=== PATIENT | male | born 1990 ===

== ENCOUNTER → 2016-08-25 | Outpatient (CLI) | payer OTHER ==
[~2016-08-25] MED LIST: AMOXICILLIN 8751 TAB PO; PREDNISONE20 MG PO
== END ==
LOC: ZCOL.LAB 17:40
DX: Z01.812 Encounter for preprocedural laboratory examination (principal); Z86.14 Personal history of Methicillin resistant Staphylococcus aureus infection

== ENCOUNTER 2017-02-06 03:42 | Emergency (ER) | payer OTHER ==
[~2017-02-06] VITALS: Ht 185.4 cm; Wt 97.7 kg
[2017-02-06 03:47] VITALS: TEMP 98
[2017-02-06] MEDS ORDERED: PREDNISONE20 MG PO (03:50)
[2017-02-06] MEDS ORDERED: AMOXICILLIN 8751 TAB PO (05:25)
[2017-02-06 06:08] VITALS: BP 132/73; PULSE 89
== END 2017-02-06 06:10 | disposition home or self-care (01) ==
LOC: COL.ER 03:42
DX: S66.301A Unspecified injury of extensor muscle, fascia and tendon of left index finger at wrist and hand level, initial encounter (principal); Y04.2XXA Assault by strike against or bumped into by another person, initial encounter; Y04.1XXA Assault by human bite, initial encounter; Y92.414 Local residential or business street as the place of occurrence of the external cause

== ENCOUNTER 2017-02-08 09:34 | Inpatient (IN) | payer OTHER ==
[2017-02-08] VITALS (11 sets, daily range): BP systolic 97–120; BP diastolic 42–66; PULSE 58–82; TEMP 97.9–98.2
[~2017-02-08] VITALS: Ht 188 cm; Wt 96.7 kg
[2017-02-08 10:40] LABS: HEMATOCRIT 40.5 % (42.0-52.0); HEMOGLOBIN 13.8 g/dl (13.5-18.0); MEAN CELL VOLUME 88 fl (80.0-100.0); MEAN CORPUSCULAR HEMOGLOBIN 30 pg (27.0-31.0); MEAN CORPUSCULAR HGB CONC 34 g/dl (33.0-37.0); MEAN PLATELET VOLUME 8.2 fl (7.4-10.4); PLATELET COUNT 227 K/mm3 (130-400); REDCELL DISTRIBUTION WIDTH-CV 11.7 % (11.5-14.5); WHITE BLOOD COUNT 8.5 K/mm3 (4.8-10.8)
[2017-02-08 10:56] LABS: C-REACTIVE PROTEIN 5.5 mg/dL (0.0-0.9); CALCIUM 9.3 mg/dL (8.4-10.2); CREATININE, serum 0.88 mg/dL (0.66-1.25); POTASSIUM 4.1 mmol/L (3.4-5.0)
[2017-02-08 11:02] LABS: ERYTHROCYTE SEDIMENTATION RATE 6 mm/hr (0-15)
[2017-02-09 02:10] VITALS: BP 136/56; PULSE 88; TEMP 98.5
[2017-02-09 05:40] VITALS: BP 113/60; PULSE 59; TEMP 98.6
[2017-02-09 09:27] VITALS: BP 113/65; PULSE 69; TEMP 98
[2017-02-09 13:53] VITALS: BP 127/59; PULSE 66
[2017-02-09 17:25] VITALS: BP 119/65; PULSE 64; TEMP 97.9
[2017-02-09 21:47] VITALS: BP 145/58; PULSE 83; TEMP 98.5
[2017-02-10 01:40] VITALS: BP 139/52; PULSE 61; TEMP 98.1
[2017-02-10 05:19] VITALS: BP 121/54; PULSE 69; TEMP 98.5
[2017-02-10 09:59] VITALS: BP 120/64; PULSE 63; TEMP 98.1
[2017-02-10 13:46] VITALS: BP 120/65; PULSE 58; TEMP 97.9
== END 2017-02-10 18:07 | disposition home or self-care (01) | DRG 513 ==
LOC: SURG 09:34
PROVIDERS: Orthopaedic Surgery
PROC: 0LQ70ZZ Repair Right Hand Tendon, Open Approach (ICD-10-PCS; 2017-02-08)
PROC: 0RBS0ZZ Excision of Right Carpometacarpal Joint, Open Approach (ICD-10-PCS; principal; 2017-02-08 12:00)
DX: M65.141 Other infective (teno)synovitis, right hand (principal); S66.324A Laceration of extensor muscle, fascia and tendon of right ring finger at wrist and hand level, initial encounter; Z87.891 Personal history of nicotine dependence; Y04.2XXA Assault by strike against or bumped into by another person, initial encounter
CPT/HCPCS: J1885; J2405; J2543; J2704; J3010; J7042; J7050; J7120